=== PATIENT | female | born 1970 | race Caucasian/White ===

== ENCOUNTER 2016-08-06 07:53 | Day surgery (SDC) | payer MEDICARE, MEDICAID ==
--- NOTE | 2016-08-06 06:59 | History and Physical Report ---
DATE OF EVALUATION: 08/05/2016. CHIEF COMPLAINT AND HISTORY OF CHIEF COMPLAINT: This patient presents with a history of intractable cervical lumbar radiculitis with a spinal opioid infusion device which is infusing hydromorphone. Over the last number of sessions, it has been identified that she has battery depletion. She is here for pump battery replacement. PAST MEDICAL HISTORY: Hypothyroidism, asthmatic bronchitis. REVIEW OF SYSTEMS: The patient is appropriate and in no acute distress. The remainder of the systems review shows glasses, headaches, thyroid disease, difficulty with breathing, peripheral edema, degenerative arthritis, fibromyalgia. SOCIAL HISTORY: Caffeine, cigarette smoking. FAMILY HISTORY: Thyroid disease, asthma, diabetes, coronary artery disease, hypertension, PAST SURGICAL HISTORY: Appendectomy, section, pump implant. ALLERGIES: Sulfa. MEDICATIONS ON ADMISSION: To be provided. PHYSICAL EXAMINATION: General: Height is 5 feet, 6 inches. Weight is 150 pounds. Vital Signs: Unavailable. HEENT: Within normal limits. Lungs: Clear. Heart: Regular rate and rhythm. Abdomen: Nontender. Musculoskeletal: Examination of the musculoskeletal system shows diffuse tenderness in the cervical and lumbar spine. The pump in the posterior gluteal margin identified. The incision is intact. Sensory rick are intact. Neurologic: Cranial nerves are intact. IMPRESSIONS: 1. POST CERVICAL LAMINECTOMY RADICULITIS, ICD10 CODE M54.13. 2. IMPLANTED SPINAL OPIOID INFUSION SYSTEM WITH HYDROMORPHONE WITH BATTERY DEPLETION. PLANS: The patient is here on an outpatient basis for replacement of the battery. No changes will be made to the infusion characteristics. The catheter within the pouch will be evaluated. The procedure will be considered outpatient. The potential risks, side effects, and complications have all been reviewed and discussed. Ron Lewis D.O. Date Time JOB NUMBER: [id number] cc: Kathleen Freedman
[~2016-08-06 07:53] MED LIST: ACETAMINOPHEN 1000MG/100 ML PREMIX IV ONE; CEFAZOLIN 2 Gram 50 ML IVPB ONE; FAMOTIDINE 20MG TABLET PO ONE; HYDROMORPHONE HCL 0.6 GM in 0.9 % SODIUM CHLORIDE 10ML VIA 20 ML IV ONE; HYDROMORPHONE HCL/PF 0.002 MG in 0.9 % SODIUM CHLORIDE 10ML VIA 0.998 ML IVP ONE; MECLIZINE 25 MG TABLET PO ONE; METOCLOPRAMIDE 10 MG TABLET PO ONE
[2016-08-06] MEDS ORDERED: BUPIVACAINE 0.5% W/EPI MPF 30 ML VIAL IVP ONE (13:22)
[2016-08-06] MEDS ORDERED: CEFAZOLIN 1G VIAL IM ONE (13:22)
[2016-08-06] MEDS ORDERED: LIDOCAINE 1% W/EPI 1:200,000 MPF 30ML SQ ONE (13:22)
[2016-08-06] MEDS ORDERED: MIDAZOLAM HCL 2MG/2ML VIAL IV ONE (16:43)
[2016-08-06] MEDS ORDERED: FENTANYL PF 100MCG/2ML VIAL IV ONE (16:43)
[2016-08-06] MEDS ORDERED: PROPOFOL 10 MG/ML VIAL IV ONE (16:43)
[2016-08-06] MEDS ORDERED: MORPHINE SULFATE 5 MG/ML PFS IVP ONE (16:43)
--- NOTE | 2016-08-06 17:15 | Operative Note - [place] ---
DATE OF SURGERY: 08/06/16 PREOPERATIVE DIAGNOSES: 1. INTRACTABLE LUMBAR RADICULITIS, ICD-10 CODE = M54.16 AND M54.17. 2. IMPLANTED SPINAL INFUSION DEVICE HYDROMORPHONE/BUPIVACAINE WITH BATTERY DEPLETION. OPERATION: 1. FLUOROSCOPICALLY-GUIDED INCISION AND SUBCUTANEOUS DISSECTION AND REMOVAL AND REPLACEMENT OF RIGHT POSTERIOR QUADRANT GLUTEAL MARGIN PUMP IDENTIFIED MEDTRONIC 20 ML PROGRAMMABLE. MEDICATION HYDROMORPHONE WITH BUPIVACAINE. 2. PLACEMENT OF A NEW PROGRAMMABLE PUMP PRE-FILLED HYDROMORPHONE/BUPIVACAINE INTERFACED TO INDWELLING SPINAL CATHETER PLACED INTO POUCH. 3. ASPIRATION 1 ML SPINAL CATHETER CONTENTS CLEARING CATHETER OF OPIOID AND CSF MIXTURE. 4. DIAGNOSTIC MYELOGRAPHY WITH RADIOLOGIC SUPERVISION AND INTERPRETATION. 5. PLACEMENT OF PUMP INTO POUCH SECURING TO POSTERIOR FASCIA, TWO PUMP EYELET, NONABSORBABLE SUTURE. CLOSURE OF INCISION VICRYL FOR FASCIA, RUNNING SUBCUTICULAR VICRYL FOR SKIN, DERMABOND CLOSURE. 6. PROGRAMMING OF PUMP TO DELIVER BY CONTINUOUS INFUSION HYDROMORPHONE/ BUPIVACAINE AT 6.4 MG PER DAY. FLEX PROGRAM. SURGEON: ROBIN CASTANON D.O. ANESTHESIA: LOCAL SEDATION. ANESTHESIA PROVIDER: ELIZABETH LOVETT CRNA INDICATION: This patient presents with a history of intractable lumbar radiculitis with a programmable pump infusion spinal opioid with battery depletion. She is here for battery pump change. PROCEDURE: Intravenous line, vital sign monitoring, IV sedation, prepped and draped with sterile technique. With the patient prone and using imaging for guidance and local for infiltration, the pump pouch at the right posterior gluteal margin was identified. Skin infiltrated, incision made, and subcutaneous dissection was conducted to open the pouch and then the pump was from the indwelling catheter and removed. Antibiotic irrigation. Bovie for hemostasis. A new pump placed onto the field already filled with Hydromorphone and Bupivacaine, was then interfaced with the indwelling spinal catheter. Through the access port, 1 ml of catheter contents was aspirated clearing the catheter of opioid and CSF mixture. Diagnostic myelography was performed through the access port under imaging and guidance. The resulting flow characteristics were appropriate confirming full integrity of the new pump and catheter combination. With the pump in the pouch, it was secured to the fascia using nonabsorbable suture and then the incisions were closed Vicryl for fascia, running subcuticular Vicryl for skin. A Dermabond closure system was then placed. She was transported to the Recovery Room stable showing no side- effects from the procedure or the sedation. DISCHARGE INSTRUCTIONS: 1. The sites to remain clean and dry. No showering or bathing in any way that would disrupt dressings. If it happens, contact the clinic. 2. Standard medications resumed including, Levaquin, the antibiotic, 500 mg once a day for 14 days. 3. Spinal opioid side-effects including respiratory depression, nausea, vomiting , constipation, urinary retention, light-headedness or rash have all been discussed and reviewed. All other instructions provided, numbers to contact, problems given. She will be seen in the office in 5-7 days and cleared for further activities. ROBIN CASTANON D.O. Date & Time cc: Porsha Trujillo M.D. JOB NUMBER: [id number] MTDD
== END 2016-08-06 11:30 | disposition home or self-care (01) ==
LOC: SUR 07:53
PROVIDERS: ATTEND Pain Medicine Interventional Pain Medicine
DX: T85.695A Other mechanical complication of other nervous system device, implant or graft, initial encounter (principal); M54.16 Radiculopathy, lumbar region; M54.17 Radiculopathy, lumbosacral region; E03.9 Hypothyroidism, unspecified; M06.9 Rheumatoid arthritis, unspecified
CPT/HCPCS: 62362; 00300; 62367; Q9967; J1170; J3010; J0690; J2270